=== PATIENT | female | born 1945 | race Caucasian/White ===

== ENCOUNTER → 2016-06-09 | Outpatient (CLI) | payer BC ==
[~2016-06-09] MED LIST: CALC500C70 PO; CHOL100027 PO; CLOTRIMAZOLE; CZR50 PO; DAPT500I IV; FURO20TA PO; HYDR-5688 PO; KRIL1CAP3 PO; MAGN1TAB15; MAGN500C PO; MELO7.5T5 PO; METO-217 PO; METO50TA7 PO; MULTTAB58 PO; POTA10CA28 PO; VITA1TAB7 PO; ZINC; [UNRECOGNIZED DRUG - CODE]; [UNRECOGNIZED DRUG - OTHER] PO
[2016-06-09 11:13] LABS: BASO % 0.4 %; BASO ABS # 0.02 K/uL (0-0.2); COMPLETE YES; EOS % 3.7 %; LYMPH % 30.4 %; LYMPH ABS # 1.56 K/uL (1.2-3.4); MEAN CELL VOLUME 89.3 fL (80-100); MEAN CORPUSCULAR HGB CONC 34.8 g/dl (32-36); MEAN PLATELET VOLUME 9.5 fL (7.4-10.4); NEUT % 59.5 %; PLATELET COUNT 242 K/uL (130-400); RED BLOOD COUNT 4.48 M/uL (4.2-5.4); WHITE BLOOD COUNT 5.14 K/uL (4.8-10.8)
[2016-06-09 11:52] LABS: ESTIMATED AVERAGE GLUCOSE 100 mg/dl; HA1C FLAG Normal (Normal)
[2016-06-09 11:56] LABS: ALT/SGPT 25 U/L (12-78); AST/SGOT 18 U/L (15-37); BLOOD UREA NITROGEN 16 mg/dl (7-18); BUN/CREATININE RATIO 17.4 (10-20); CALCIUM 9.1 mg/dl (8.5-10.1); CARBON DIOXIDE 29 mmol/L (21-32); CHLORIDE 108 mmol/L (98-107); CHOLESTEROL 213 mg/dl (0-200); CREATININE 0.92 mg/dl (0.60-1.20); GLUCOSE 92 mg/dl (70-99); MAGNESIUM 2.3 mg/dl (1.8-2.4); POTASSIUM 3.7 mmol/L (3.5-5.1); SODIUM 144 mmol/L (136-145); TRIGLYCERIDES 145 mg/dl (0-150); VERY LOW DENSITY LIPOPROT CALC 29 mg/dl
[2016-06-09 12:04] LABS: ALB/GLOB RATIO 1.1 (0.9-2); ALKALINE PHOSPHATASE 83 U/L (45-117); CHOLESTEROL/HDL RATIO 3.2; HDL CHOLESTEROL 66 mg/dl; LDL CHOLESTEROL CALCULATED 118 mg/dl; THYROID STIMULATING HORMONE 0.963 uIu/ml (0.300-4.500); TOTAL IRON BINDING CAPACITY 354 mcg/dl (250-450)
--- NOTE | 2016-06-14 12:45 | CODING QUERY MEDICAL NECESSITY ---
SUPPORTING DIAGNOSIS NEEDED A supporting diagnosis is required for the test/procedure performed on this patient in order for us to be reimbursed by the patient's insurance. Please provide a supporting diagnosis for the following test/procedure listed below next to the test name along with your signature. *If there is no additional diagnosis for this patient that would support the following test/procedure please document that below next to the test/procedure. Test(s)/Procedure(s) that require a supporting diagnosis: DOS 06/09 * Vitamin B12 DIAGNOSIS: * Vitamin D DIAGNOSIS: * Hba1c DIAGNOSIS: Provider Signature: Date: Thank you Marissa Carcamo Health Information Management Once completed, please kindly fax back to [phone] For questions please call [phone]
[2016-06-14 13:35] LABS: ANA TITER 1:40 TITER (<1:40)
== END | disposition home or self-care (01) ==
LOC: C.LAB 10:21
PROVIDERS: ATTEND Internal Medicine Pulmonary Disease
DX: R76.8 Other specified abnormal immunological findings in serum (principal); R53.83 Other fatigue; Z79.899 Other long term (current) drug therapy; R73.9 Hyperglycemia, unspecified; R00.2 Palpitations; R60.9 Edema, unspecified; E55.9 Vitamin D deficiency, unspecified; M79.1 Myalgia

== ENCOUNTER → 2016-07-19 | Outpatient (CLI) | payer BC ==
[2016-07-19 13:04] LABS: BASO % 0.5 %; BASO ABS # 0.03 K/uL (0-0.2); COMPLETE YES; EOS % 1.5 %; HEMATOCRIT 41.9 % (37-47); IG% 0.2 %; LYMPH % 30.5 %; LYMPH ABS # 1.88 K/uL (1.2-3.4); MEAN CELL VOLUME 91.7 fL (80-100); MEAN CORPUSCULAR HEMOGLOBIN 31.9 pg (25-34); MEAN CORPUSCULAR HGB CONC 34.8 g/dl (32-36); MEAN PLATELET VOLUME 9.8 fL (7.4-10.4); MONO % 5.4 %; NEUT % 61.9 %; PLATELET COUNT 264 K/uL (130-400); RED BLOOD COUNT 4.57 M/uL (4.2-5.4); WHITE BLOOD COUNT 6.16 K/uL (4.8-10.8)
[2016-07-19 13:56] LABS: ALT/SGPT 24 U/L (12-78); CREATININE 0.91 mg/dl (0.60-1.20)
[2016-07-19 13:59] LABS: ALKALINE PHOSPHATASE 93 U/L (45-117); AST/SGOT 18 U/L (15-37)
[2016-07-24 13:10] LABS: ALBUMIN 4.1 G/DL (3.8-4.8); ANTI-CENTROMERE AB <1.0 NEG AI (<1.0 NEG); ANTI-SS-A <1.0 NEG AI (<1.0 NEG); ANTI-SS-B <1.0 NEG AI (<1.0 NEG); DNA ds CRITHIDIA NEGATIVE (NEGATIVE); GAMMA GLOBULIN 0.8 G/DL (0.8-1.7); Sm Antibody <1.0 NEG AI (<1.0 NEG); TOTAL PROTEIN 6.9 G/DL (6.2-8.3)
== END | disposition home or self-care (01) ==
LOC: C.LAB1850 11:54
PROVIDERS: ATTEND Internal Medicine Rheumatology
DX: R76.8 Other specified abnormal immunological findings in serum (principal); R77.8 Other specified abnormalities of plasma proteins

== ENCOUNTER → 2016-10-10 | Outpatient (CLI) | payer BC ==
--- NOTE | 2016-10-10 14:23 | DIAGNOSTIC IMAGING REPORT ---
ABDOMEN FOR HERNIA HISTORY: 71 years-old Female K43.2 Incisional hernia COMPARISON: CT abdomen and pelvis 07/28/2014 TECHNIQUE: Multiple real-time sonography images of the abdominal wall soft tissues inferior to the umbilicus were obtained assessing grayscale appearance and color Doppler flow. FINDINGS: There are several areas of ill-defined increased echogenicity within the subcutaneous fat of the anterior abdominal wall, largest of which measures 2.2 x 1.2 x 2.3 cm without internal vascularity suggesting lipoma. No definite large hernia identified. IMPRESSION: 1. No definite abdominal wall hernia identified. 2. Several ovoid echogenic lesions within the subcutaneous fat are seen, largest of which measures up to 2.3 cm suggesting lipomas. The above report was generated using voice recognition software. It may contain grammatical, syntax or spelling errors. Electronically signed by: Chance Lemon M.D. 10/10/2016 2:21 PM Dictated Date/Time: 10/10/2016 2:19 PM
== END | disposition home or self-care (01) ==
LOC: C.ULTR 12:50
PROVIDERS: ATTEND Internal Medicine
DX: K43.2 Incisional hernia without obstruction or gangrene (principal)

== ENCOUNTER → 2016-11-30 | Outpatient (CLI) | payer BC ==
[2016-11-30 12:19] LABS: BASO % 0.4 %; BASO ABS # 0.02 K/uL (0-0.2); COMPLETE YES; EOS % 1.7 %; HEMATOCRIT 41.4 % (37-47); IG% 0.4 %; LYMPH % 28.9 %; LYMPH ABS # 1.57 K/uL (1.2-3.4); MEAN CELL VOLUME 91.2 fL (80-100); MEAN CORPUSCULAR HEMOGLOBIN 32.4 pg (25-34); MEAN CORPUSCULAR HGB CONC 35.5 g/dl (32-36); MONO % 6.1 %; NEUT % 62.5 %; PLATELET COUNT 245 K/uL (130-400); RED BLOOD COUNT 4.54 M/uL (4.2-5.4); WHITE BLOOD COUNT 5.43 K/uL (4.8-10.8)
[2016-11-30 12:37] LABS: ALT/SGPT 25 U/L (12-78); AST/SGOT 17 U/L (15-37); BLOOD UREA NITROGEN 15 mg/dl (7-18); CALCIUM 9.8 mg/dl (8.5-10.1); CARBON DIOXIDE 27 mmol/L (21-32); CHLORIDE 108 mmol/L (98-107); CREATININE 0.88 mg/dl (0.60-1.20); GLUCOSE 98 mg/dl (70-99); MAGNESIUM 2.1 mg/dl (1.8-2.4); POTASSIUM 3.9 mmol/L (3.5-5.1); SODIUM 143 mmol/L (136-145)
[2016-11-30 12:40] LABS: ALB/GLOB RATIO 1.1 (0.9-2); ALKALINE PHOSPHATASE 99 U/L (45-117)
== END | disposition home or self-care (01) ==
LOC: C.LAB1850 10:46
PROVIDERS: ATTEND Nurse Practitioner Adult Health
DX: Z01.818 Encounter for other preprocedural examination (principal); I10 Essential (primary) hypertension; R01.0 Benign and innocent cardiac murmurs; E83.42 Hypomagnesemia

== ENCOUNTER → 2016-12-05 | Day surgery (SDC) | payer BC ==
--- NOTE | 2016-12-04 10:01 | HISTORY & PHYSICAL EXAMINATION ---
DATE OF ADMISSION: 12/05/2016 HISTORY OF PRESENT ILLNESS: A 71-year-old female presents for preop evaluation, requesting surgery. Condition is located in the left second digit. Pain is described as numbness and sharp and tingling. Condition was first noted several years ago. Severity of condition is graded as a 7 on a 10 point scale. Associated signs and symptoms include ulceration. The patient if she is having pain in the left second digit due to hammertoe that is causing the tip of her toe to form an ulcer. Past treatment and tests for this condition include radiographs debridement, accommodative padding, topical. 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 This started from the hammertoe and is requesting surgery of the left second digit to prevent problems that developed previously. The patient notes severe discomfort. She also would like to prevent amputation similar to what had happened on the third toe as the symptoms on the left second toe were the underlying root of her left second digit problem which she had surgery for the last year. PAST SURGICAL HISTORY: Ovarian surgery, hernia repair, hysterectomy. PAST MEDICAL HISTORY: Ovarian cancer, hypertension, arthritis, breast cancer. MEDICATIONS: Multivitamin, metoprolol, calcium, furosemide, magnesium, potassium chloride, lovastatin, and potassium. ALLERGIES: No known drug allergies. FAMILY HISTORY: Cardiovascular disease associated with father and breast cancer associated with mother. SOCIAL HISTORY: The patient admits to alcohol use, drinking described as social. The patient admits to tobacco use. She denies smoking. REVIEW OF SYSTEMS: Unremarkable except chief complaint. PHYSICAL EXAMINATION: VITAL SIGNS: BP 160/100. Height 5 feet 9 inches, weight 233 pounds, body mass index 34. CONSTITUTIONAL: The patient appears well-developed and nourished with good attention to body grooming and habitus. HEAD AND FACE: Head is normocephalic and atraumatic without any gross head, face, or neck masses. EYES: Conjunctival and pupillary reaction to light and accommodation are normal. EARS, NOSE, MOUTH, AND THROAT: Unremarkable. NECK: Neck is supple. Trachea is midline without any adenopathy or crepitance palpable. CARDIOVASCULAR: Normal S1, S2 without murmur, gallops, rubs, or clicks noted. Cardiovascular exam is normal. RESPIRATORY: Chest is symmetric. No scars are visible. No port or pacemaker. LUNGS: Clear to auscultation bilaterally and equal. GASTROINTESTINAL: Abdominal organs, bladder, and kidneys show no abnormalities, masses, tenderness, or rigidity. LYMPHATIC: No popliteal, inguinal, or supraclavicular lymphadenopathy noted. LOWER EXTREMITIES: DP palpable. PT palpable. DERMATOLOGIC: Inspection of the left second digit shows dry drainage in the callous tissue. PIP joint of left third digit shows cicatrix. Left distal fourth interspace interphalangeal joint, left second and proximal interphalangeal joint left fifth digit shows redness. NEUROLOGICAL: Touch, pin, vibratory, and proprioception sensations are normal. Epicritic sensation per Rose-Alessandra monofilament 5.07 absent distally bilaterally. MUSCULOSKELETAL: Muscle tone is normal. Muscle strength 5/5 all groups tested. Right second digit shows retrograde buckling across the metatarsophalangeal joint, right fourth and fifth digit shows adduction, inversion deformity alignment and left third digit is good, metatarsalgia and pain is noted over the lesions. IMPRESSION: 1. Metatarsalgia secondary to lesions. 2. Hammertoe syndrome 2 through 5. 3. Difficulty walking. 4. Pain lower extremity, left second digit. 5. Positive ISIS. 6. Peripheral neuropathy. 7. 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 PLAN: I discussed mechanical and congenital etiology of patient's deformity, conservative treatment consisting of extra depth shoes, accommodative padding, steroid injections, nonsteroidals, palliative debridement, splints, orthotics to slow down the progression of deformity, little relief with conservative care, patient is requesting surgical intervention. Surgical procedures to be performed: 1. PIPJ arthroplasty with possible arthrodesis and MTPJ release, left second digit. 2. Capsulotomy with relocation left second MTPJ. This will be performed under local IV sedation as an outpatient at the hospital. The procedure, risks and complications were fully reviewed with the patient. Consent form, foot diagram and illustration reviewed in all there entirety. All the patient's questions were answered. Complications were discussed in detail with the patient including pain, infection, swelling that may or may not be excessive, pins and needles feeling, metatarsalgia, excessive bleeding, delay or nonhealing bone, delay or nonhealing of skin, enlarged scar, failure of the procedure, reoccurrence or worsening of condition which may or may not require further surgery, adverse reaction to anesthesia, allergic reaction to suture or other implant material, loss of toe, flail toe, short toe, elevated toe, transfer lesion or callus, peripheral neurovascular complications such as phlebitis, damage to nerves or vascular structures, recurrent pain, chronic nerve pain or damage, and general medical complications. The patient will be required to be in a surgery shoe for a minimum of 3-6 weeks and not to dress shoe for 6-12 weeks depending on postop edema. The patient is aware this is an elective type procedure and I recommend a second opinion. The patient stated they understood. Consent form was signed with a copy of the foot diagram and illustration given to the patient. Verbal and written postop instructions were given. The patient will be required to be in a surgery shoe for a minimum of 6-8 weeks and not return to dress shoe for 6-12 weeks depending on the postop edema. The patient will return to the office for postop check or sooner if medically necessary. Instructed to keep dressing clean, dry and intact until seen at the office. At time of the preoperative appointment, prescriptions for Percocet and Keflex were dispensed.
[2016-12-04 14:23] VITALS: BMI 34.0
[~2016-12-05] VITALS: Ht 175.3 cm; Wt 105.9 kg
[~2016-12-05] MED LIST changes: +ATROPINE SULFATE 0.1 MG/ML 5ML SYR IV PRN; +BUPIVACAINE 0.5 % 5 MG/1 ML MPF 30ML VIAL ONE; +CEFAZOLIN 2000 MG/60 ML D5W 60 ML IV SCH; +CEFAZOLIN 2000 MG/60 ML D5W IV SCH; -CLOTRIMAZOLE; -DAPT500I IV; +DEXAMETHASONE SOD INJ 4 MG/ML VIAL ONE; +EpHEDrine SULFATE INJ 50 MG/ML AMP IV PRN; +FENTANYL CITRATE INJ 50 MCG/1 ML 2 ML VIAL IV PRN; +FENTANYL CITRATE INJ 50 MCG/1 ML 2 ML VIAL ONE; -HYDR-5688 PO; +HYDROmorphone INJ 1 MG/ML SYR IV PRN; +LABETALOL HCL IV 5 MG/ML 20ML IV ONE; +LABETALOL HCL IV 5 MG/ML 20ML IV PRN; +LACTATED RINGER'S 1000ML 1,000 ML IV SCH; +LIDOCAINE HCL 2% 2 ML VIAL (20MG/ML) ONE; -MAGN1TAB15; -METO50TA7 PO; +MIDAZOLAM HCL 1 MG/ML 2ML VIAL ONE; +MISSING PHYSICIAN SIGNATURE ON ORDER SCH; +NURSING VERBAL MED ORDER ONE; +ONDANSETRON INJ 2 MG/ML 2 ML VIAL IV PRN; +ONDANSETRON INJ 2 MG/ML 2 ML VIAL ONE; +PATIENT'S ALLERGY INFO NEEDS ENTERED SCH; +PATIENT'S HEIGHT AND/OR WEIGHT NEEDED SCH; +PHENYLEPHRINE 100MCG/ML 5ML SYR ONE; +PROPOFOL IV EMULSION 10 MG/ML 20 ML VIAL IV ONE; +ROPIVACAINE 0.5% 5 MG/ML 30 ML VIAL ONE; +SODIUM CHLORIDE 0.9% 1000ML 1,000 ML IV SCH; +SODIUM CHLORIDE 0.9% 1000ML IV SCH; -ZINC; -[UNRECOGNIZED DRUG - OTHER] PO
[2016-12-05 08:13] VITALS: BP 189/79; PULSE 84; TEMP 36.9; O2SAT 96; Ht 175.3 cm; Wt 105.9 kg
--- NOTE | 2016-12-05 11:20 | DIAGNOSTIC IMAGING REPORT ---
INTRAOPERATIVE FLUOROSCOPIC IMAGES OF THE LEFT FOOT CLINICAL HISTORY: Left second digit hammertoe deformity. COMPARISON STUDY: Left foot radiographs December 14, 2015. Fluoroscopy time: 5 seconds. FINDINGS: 2 fluoroscopic images were obtained. Note is made of postoperative findings within the left second toe, including fusion of the proximal interphalangeal joint of the second toe. An old, healed fracture of the distal shaft of left second metatarsal is noted. The hardware is intact. There are no unexpected radiopaque foreign bodies. IMPRESSION: Expected findings with the left second digit following hammertoe correction. Electronically signed by: Cesar Silverman M.D. 12/05/2016 11:18 AM Dictated Date/Time: 12/05/2016 11:16 AM
--- NOTE | 2016-12-05 11:38 | History & Physical Bridge Note ---
H&P Re-Evaluation Bridge Note: I have examined the patient, reviewed the History & Physical and in the interval since the performance of the History & Physical I have noted the following changes of clinical significance: No changes noted
--- NOTE | 2016-12-05 11:41 | Discharge Instructions ---
Discharge Instructions Date of Service Dec 05, 2016. Admission Reason for Admission: Left Foot Hammertoe -2ND Metatarsal Phalangeal Dariela Discharge Discharge Diagnosis / Problem: same as above Discharge Goals Goal(s): Decrease discomfort Activity Recommendations Activity Limitations: as noted below Medications: * Resume previous medications unless instructed by your surgeon. * Take your medications as prescribed. Call our office ([phone]) at any time, if you experience severe pain that does not subside shortly after taking your pain medication. Activity: * You may walk on your operated foot/ankle using the surgical shoe or cast/splint. Do not put any weight on your operated foot/ankle without wearing the surgical shoe or cast sandal.. Special Care: * Keep your bandage clean and dry. Do not remove your bandage unless otherwise instructed. A small amount of blood may appear on the bandage over the surgical site. Call our office ([phone]) if you bandage becomes blood-soaked or wet. * Elevate your operated foot/ankle on pillows, above the level of your heart, as often as possible during the first 2-3 days following surgery. Keep your knee flexed slightly with a pillow under your knee when you elevate your foot/ankle. * Apply a ice bag to your foot/ankle over the operative site for 20-30 minutes out of each hour while you are awake. Do not allow the ice bag to directly contact bare skin. * Avoid bumping or handling any pins visible in your toes. If any pin feels or appears loose, call the office ([phone]). * Take your oral temperature in the morning and at bedtime. Call our office ([phone]) if your temperature rises above 101 degrees Fahrenheit. Call your surgeon's office at ([phone]) for any problems or concerns such as excessive bleeding and/or pain unrelieved by your prescribed pain medications. If you have any questions, please do not hesitate to ask them. Avoid all tobacco products. If you need help to stop smoking, call [place] FREE QUITLINE at . This is a free call. Follow-up: Follow-up with Dr. Pena . Instructions / Follow-Up Instructions / Follow-Up Medications: * Resume previous medications unless instructed by your surgeon. * Take your medications as prescribed. Call our office ([phone]) at any time, if you experience severe pain that does not subside shortly after taking your pain medication. Activity: * You may walk on your operated foot/ankle using the surgical shoe or cast/splint. Do not put any weight on your operated foot/ankle without wearing the surgical shoe or cast sandal.. Special Care: * Keep your bandage clean and dry. Do not remove your bandage unless otherwise instructed. A small amount of blood may appear on the bandage over the surgical site. Call our office ([phone]) if you bandage becomes blood-soaked or wet. * Elevate your operated foot/ankle on pillows, above the level of your heart, as often as possible during the first 2-3 days following surgery. Keep your knee flexed slightly with a pillow under your knee when you elevate your foot/ankle. * Apply a ice bag to your foot/ankle over the operative site for 20-30 minutes out of each hour while you are awake. Do not allow the ice bag to directly contact bare skin. * Avoid bumping or handling any pins visible in your toes. If any pin feels or appears loose, call the office ([phone]). * Take your oral temperature in the morning and at bedtime. Call our office ([phone]) if your temperature rises above 101 degrees Fahrenheit. Call your surgeon's office at ([phone]) for any problems or concerns such as excessive bleeding and/or pain unrelieved by your prescribed pain medications. If you have any questions, please do not hesitate to ask them. Avoid all tobacco products. If you need help to stop smoking, call [place] FREE QUITLINE at . This is a free call. Follow-up: Follow-up with Dr. Pena Current Hospital Diet Patient's current hospital diet: Discharge Diet Recommended Diet: Pediatric Diet Procedures Procedures Performed: Proximal Interphalangeal Joint Arthroplasty with Arthrodesis and Metatarsal Phalangeal Joint; Left 2nd Capsulotomy with Relocation Left 2nd Metatarsal Phalangeal Joint Pending Studies Studies pending at discharge: no Medical Emergencies . Who to Call and When: Medical Emergencies: If at any time you feel your situation is an emergency, please call 911 immediately. . Non-Emergent Contact Non-Emergency issues call your: Primary Care Provider . "Provider Documentation" section prepared by Izabel Chu. . VTE Core Measure Inpt VTE Proph given/why not?: Treatment not indicated
--- NOTE | 2016-12-05 12:23 | Anesthesiology Progress Note ---
Anesthesia Post Op Note Date & Time Dec 05, 2016 at 12:23 Vital Signs Pain Intensity: 0 Vital Signs Past 12 Hours Date Time Temp Pulse Resp B/P (MAP) Pulse Ox O2 Delivery O2 Flow Rate FiO2 12/05/16 12:10 77 16 176/78 95 12/05/16 12:00 72 16 188/73 96 12/05/16 11:50 75 16 205/83 95 12/05/16 11:40 73 16 202/74 98 Oxymask 2 12/05/16 11:30 73 18 163/71 100 Oxymask 5 12/05/16 11:20 36.2 75 16 178/81 100 Oxymask 10 12/05/16 08:13 36.9 84 20 189/79 (115) 96 Room Air Notes Mental Status: alert / awake / arousable, participated in evaluation Pt Amnestic to Procedure: Yes Nausea / Vomiting: adequately controlled Pain: adequately controlled Airway Patency, RR, SpO2: stable & adequate BP & HR: stable & adequate Hydration State: stable & adequate Anesthetic Complications: no major complications apparent
[2016-12-05 13:00] VITALS: BP 191/84; PULSE 81; TEMP 36.9; O2SAT 94
[2016-12-05 13:30] VITALS: BP 189/81; PULSE 82; O2SAT 97
[2016-12-05 13:54] VITALS: BP 186/83; PULSE 80; TEMP 36.6; O2SAT 95
--- NOTE | 2016-12-06 07:55 | OPERATIVE REPORT ---
DATE OF OPERATION: 12/05/2016 SURGEON: Dr. Pena. PREOPERATIVE DIAGNOSES: 1. Hammertoe, left second digit. 2. Pain, left second digit. 3. Status post amputation distal phalanx secondary to hammertoe, left third on 12/15/2015. POSTOPERATIVE DIAGNOSES: Same. PROCEDURES: 1. Proximal interphalangeal joint arthroplasty with arthrodesis and metatarsophalangeal joint release. 2. Capsulotomy, left second metatarsophalangeal joint. ANESTHESIA: General with a preoperative block given with 0.5% Marcaine plain, total of 30 mL. HEMOSTASIS: None. ESTIMATED BLOOD LOSS: Minimal. MATERIALS: An extra implant 2.3 proximal phalanx and 4.5 middle phalanx; 2-0 and 3-0 Vicryl, 4-0 nylon. HISTOPATHOLOGY: Bone sent. COMPLICATIONS: None. He tolerated the procedure and anesthesia well without complications. It should be noted 3.5 middle phalanx implant pulled out and this was replaced with a 4.5 mm with good bony purchase. PROCEDURE: The patient was brought to the OR and placed on the OR table in supine position. Upon completion of general anesthesia by the anesthesia department, the foot was scrubbed, prepped and draped in the usual aseptic fashion. A well-padded tourniquet was inflated to the left lower extremity; however, was not inflated throughout the case. Local field block was performed with 30 mL 0.5% Marcaine plain. Attention was directed to the dorsal aspect of the left foot where a curvilinear incision was made over the metatarsophalangeal joint extending out onto the toe. Care was taken to preserve all neurovascular structures. At the level deeper the long extensor tendon was identified at the proximal interphalangeal joint and transected, release of the collateral ligaments was performed. A capsulotomy was performed of the left second MTPJ with a McGlamry elevator and sharp blade and relocation of the joint in a more plantar flexed direction. Using a sagittal saw, the head of the proximal phalanx and the base of the middle phalanx cartilage surface was removed. This was reamed and drilled, and an extra implant 3.2 was placed in the proximal phalanx and a 3.5 was placed in the middle phalanx; however, during the attachment, this pulled through due to poor bony purchase. A 5.5 was opened; however, this implant was and not placed in the patient, and a 4.5 middle phalanx implant was placed. The wound was copiously lavaged. Closure began using 2-0 Vicryl in the repair of the extensor tendons and 3-0 Vicryl in a box stitch technique. Skin margins were closed using 4-0 nylon in simple interrupted fashion. Dry sterile compressive dressing consisting of Adaptic, 4 x 4's, Trina and an Erwin was applied. CONDITION: The patient tolerated the procedure and anesthesia well without complications, transferred to recovery room with vital signs stable and neurovascular status intact. I attest to the content of the Intraoperative Record and any orders documented therein. Any exception s are noted below.
== END | disposition home or self-care (01) ==
LOC: C.ACU 07:36
PROVIDERS: ATTEND Podiatrist Foot & Ankle Surgery
DX: M20.42 Other hammer toe(s) (acquired), left foot (principal); Z90.710 Acquired absence of both cervix and uterus; M19.90 Unspecified osteoarthritis, unspecified site; Z85.3 Personal history of malignant neoplasm of breast; I10 Essential (primary) hypertension; Z85.43 Personal history of malignant neoplasm of ovary; Z92.21 Personal history of antineoplastic chemotherapy; E66.9 Obesity, unspecified

== ENCOUNTER → 2016-12-14 | Outpatient (CLI) | payer BC ==
[~2016-12-14] MED LIST changes: -ATROPINE SULFATE 0.1 MG/ML 5ML SYR IV PRN; -BUPIVACAINE 0.5 % 5 MG/1 ML MPF 30ML VIAL ONE; -CEFAZOLIN 2000 MG/60 ML D5W 60 ML IV SCH; -CEFAZOLIN 2000 MG/60 ML D5W IV SCH; -DEXAMETHASONE SOD INJ 4 MG/ML VIAL ONE; -EpHEDrine SULFATE INJ 50 MG/ML AMP IV PRN; -FENTANYL CITRATE INJ 50 MCG/1 ML 2 ML VIAL IV PRN; -FENTANYL CITRATE INJ 50 MCG/1 ML 2 ML VIAL ONE; -HYDROmorphone INJ 1 MG/ML SYR IV PRN; -LABETALOL HCL IV 5 MG/ML 20ML IV ONE; -LABETALOL HCL IV 5 MG/ML 20ML IV PRN; -LACTATED RINGER'S 1000ML 1,000 ML IV SCH; -LIDOCAINE HCL 2% 2 ML VIAL (20MG/ML) ONE; -MIDAZOLAM HCL 1 MG/ML 2ML VIAL ONE; -MISSING PHYSICIAN SIGNATURE ON ORDER SCH; -NURSING VERBAL MED ORDER ONE; -ONDANSETRON INJ 2 MG/ML 2 ML VIAL IV PRN; -ONDANSETRON INJ 2 MG/ML 2 ML VIAL ONE; -PATIENT'S ALLERGY INFO NEEDS ENTERED SCH; -PATIENT'S HEIGHT AND/OR WEIGHT NEEDED SCH; -PHENYLEPHRINE 100MCG/ML 5ML SYR ONE; -PROPOFOL IV EMULSION 10 MG/ML 20 ML VIAL IV ONE; -ROPIVACAINE 0.5% 5 MG/ML 30 ML VIAL ONE; -SODIUM CHLORIDE 0.9% 1000ML 1,000 ML IV SCH; -SODIUM CHLORIDE 0.9% 1000ML IV SCH
--- NOTE | 2016-12-14 15:36 | MAMMOGRAPHY REPORT ---
UNILATERAL RIGHT DIGITAL SCREENING MAMMOGRAM TOMOSYNTHESIS WITH CAD: 12/14/2016 CLINICAL HISTORY: Asymptomatic. Personal history of breast cancer. TECHNIQUE: Breast tomosynthesis in addition to standard 2D mammography was performed. Current study was also evaluated with a Computer Aided Detection (CAD) system. COMPARISON: Comparison is made to exams dated: 12/09/2015 mammogram, 12/07/2014 mammogram, 12/04/2013 m ammogram, 11/29/2012 mammogram, 06/03/2012 mammogram, and 11/29/2011 mammogram - [facility] enter. BREAST COMPOSITION: There are scattered areas of fibroglandular density in the right breast. FINDINGS: There are no suspicious masses, calcifications, or areas of architectural distortion noted in the right breast. There has been no significant interval change compared to prior exams. Scatter ed asymmetries and benign-appearing calcifications are not significantly changed. IMPRESSION: ACR BI-RADS CATEGORY 2: BENIGN There is no mammographic evidence of malignancy in the right breast. A 1 year screening mammogram is recommended. The patient will receive written notification of the results. Approximately 10% of breast cancers are not detected with mammography. A negative mammographic report should not delay biopsy if a clinically suggestive mass is present. Mary Singh M.D. /:12/14/2016 12:42:32 [employer] Developer: Kathy ESPINOSA)(), [facility] letter sent: Normal 1/2 BI-RADS Code: ACR BI-RADS Category 2: Benign
== END | disposition home or self-care (01) ==
LOC: C.MAMM 11:46
PROVIDERS: ATTEND Internal Medicine
DX: Z12.31 Encounter for screening mammogram for malignant neoplasm of breast (principal); Z85.3 Personal history of malignant neoplasm of breast; Z08 Encounter for follow-up examination after completed treatment for malignant neoplasm; Z90.12 Acquired absence of left breast and nipple

== ENCOUNTER → 2016-12-20 | Outpatient (CLI) | payer BC ==
[2016-12-20 10:16] LABS: HEMATOCRIT 42.6 % (37-47); MEAN CELL VOLUME 91.2 fL (80-100); MEAN CORPUSCULAR HEMOGLOBIN 31.3 pg (25-34); MEAN CORPUSCULAR HGB CONC 34.3 g/dl (32-36); MEAN PLATELET VOLUME 9.8 fL (7.4-10.4); PLATELET COUNT 243 K/uL (130-400); RED BLOOD COUNT 4.67 M/uL (4.2-5.4)
[2016-12-20 10:43] LABS: ALT/SGPT 21 U/L (12-78); AST/SGOT 12 U/L (15-37); BLOOD UREA NITROGEN 16 mg/dl (7-18); BUN/CREATININE RATIO 16.6 (10-20); CALCIUM 9.4 mg/dl (8.5-10.1); CARBON DIOXIDE 28 mmol/L (21-32); CHLORIDE 107 mmol/L (98-107); CREATININE 0.99 mg/dl (0.60-1.20); GLUCOSE 93 mg/dl (70-99); POTASSIUM 3.4 mmol/L (3.5-5.1); SODIUM 144 mmol/L (136-145)
[2016-12-20 10:46] LABS: CHOLESTEROL 214 mg/dl (0-200); CHOLESTEROL/HDL RATIO 3.1; HDL CHOLESTEROL 70 mg/dl; LDL CHOLESTEROL CALCULATED 116 mg/dl; TRIGLYCERIDES 140 mg/dl (0-150); VERY LOW DENSITY LIPOPROT CALC 28 mg/dl
[2016-12-21 16:58] LABS: GAMMA GLOBULIN 0.7 G/DL (0.8-1.7); TOTAL PROTEIN 6.5 G/DL (6.2-8.3)
== END | disposition home or self-care (01) ==
LOC: C.LAB1850 09:24
PROVIDERS: ATTEND Internal Medicine
DX: I10 Essential (primary) hypertension (principal); E55.9 Vitamin D deficiency, unspecified; Z79.1 Long term (current) use of non-steroidal anti-inflammatories (NSAID); R77.8 Other specified abnormalities of plasma proteins

== ENCOUNTER → 2017-04-11 | Outpatient (CLI) | payer BC | END | disposition home or self-care (01) | LOC: C.LABSPEC 17:02 | PROVIDERS: ATTEND Podiatrist Foot & Ankle Surgery | DX: L60.0 Ingrowing nail (principal) ==

== ENCOUNTER → 2017-05-01 | Outpatient (CLI) | payer BC | END | disposition home or self-care (01) | LOC: C.LABSPEC 17:19 | PROVIDERS: ATTEND Podiatrist Foot & Ankle Surgery | DX: B35.1 Tinea unguium (principal) ==

== ENCOUNTER → 2017-10-09 | Outpatient (CLI) | payer BC ==
[2017-10-09 12:31] LABS: ALT/SGPT 23 U/L (12-78); AST/SGOT 16 U/L (15-37); BLOOD UREA NITROGEN 14 mg/dl (7-18); CALCIUM 9.2 mg/dl (8.5-10.1); CARBON DIOXIDE 27 mmol/L (21-32); CHOLESTEROL 197 mg/dl (0-200); CREATININE 1.01 mg/dl (0.60-1.20); GLUCOSE 94 mg/dl (70-99); LDL CHOLESTEROL CALCULATED 101 mg/dl; POTASSIUM 3.7 mmol/L (3.5-5.1); SODIUM 141 mmol/L (136-145)
== END | disposition home or self-care (01) ==
LOC: C.LAB1850 10:15
PROVIDERS: ATTEND Nurse Practitioner
DX: Z85.43 Personal history of malignant neoplasm of ovary (principal)